=== PATIENT | male | born 1980 | race Caucasian/White ===

== ENCOUNTER 2017-11-29 09:03 | Outpatient (CLI) | payer MEDICAID ==
[~2017-11-29 09:03] MED LIST: CLIN300C85 PO
== END 2017-11-29 23:59 | disposition home or self-care (01) ==
LOC: RAD 09:03
PROVIDERS: ATTEND Family Medicine
DX: M48.02 Spinal stenosis, cervical region (principal); M25.78 Osteophyte, vertebrae; M50.223 Other cervical disc displacement at C6-C7 level; G93.89 Other specified disorders of brain
CPT/HCPCS: 70551; 72141